=== PATIENT | female | born 1955 | race Caucasian/White ===

== ENCOUNTER 2019-03-15 08:24 | Inpatient (IN) | payer OTHER, SELFPAY ==
[2019-03-06 08:27] VITALS: BMI 25.8
[2019-03-15] VITALS (16 sets, daily range): BP systolic 126–181; BP diastolic 79–100; PULSE 62–70; RESP 12–20; TEMP 36.2–37.1; O2SAT 97–100; BMI 25.1
--- NOTE | 2019-03-15 06:00 | DI.RAD.S_ITS ---
PROCEDURE: XR KNEE LT 1TO2V INDICATIONS: prosthesis placement TECHNIQUE: 2 view(s) of the knee acquired. COMPARISON: None. FINDINGS: Bones: Patient is status post knee joint arthroplasty. Hardware components are in expected positions. Visualized bony structures are intact. Soft tissues: Overlying postoperative changes are noted. IMPRESSION: Normal alignment after left total knee arthroplasty, a surgical drain overlies the operative bed. Dictated by: Talha Colon M.D. on 03/15/2019 at 15:09 Approved by: Talha Colon M.D. on 03/15/2019 at 15:09
[2019-03-15] MEDS: CELECOXIB 200 MG CAPSULE PO (08:56)
[2019-03-15] MEDS: PREGABALIN 75 MG CAPSULE PO (08:56)
[2019-03-15] MEDS: ACETAMINOPHEN 325 MG TABLET 975 MG PO ×3 (08:56→20:45)
[2019-03-15] MEDS: LACTATED RINGERS 1,000 ML 42 ML IV ×2 (09:03→12:27)
[2019-03-15] MEDS: VANCOMYCIN 1,000 MG/200 ML FROZ.PIGGY 200 MG IV (09:30)
--- NOTE | 2019-03-15 10:51 | PM.PREOP ---
Pre-operative Note Interval Note History & Physical reviewed/Exam performed by Physician: Yes Changes to H&P: No
--- NOTE | 2019-03-15 10:53 | P.OP_ITS ---
Operative Date/Time/Diagnoses Date of procedure: 03/15/19 Time of procedure: 10:52 Post-op diagnosis: same Procedure & Clinicians Procedure: Left total knee arthroplasty Same procedure as scheduled: Yes Indications: The patient has had progressively worsening left knee pain with radiographic changes consistent with arthritis. Non-operative management has failed and the patient has requested total knee replacement. The risks, benefits and alternatives to surgery were discussed with the patient prior to proceeding. Risks discussed included, but were not limited to, failure to relieve pain, stiffness, infection, nerve damage, deep venous thrombosis, pulmonary embolism, stroke, coma, heart attack, permanent paralysis and , as well as the potential need for eventual revision of the prosthetic. Surgeon: Fany Faith Business Management Consultant: Sobeida Rodas Anesthesia Type: Spinal and Sedation Operative Notes Findings: Severe left knee arthritis, good stability Closure Type: primary Specimen(s): none sent Prosthetic devices, grafts, tissues, transplants, or devices: Faith [employer] Nephew Sathyaney BCS 2 SIZE 6 FEMUR, SIZE 4 TIBIA, +9 poly, 32 by 7-1/2 mm patella Applied: drain(s) Estimated Blood Loss (mL): 250 Blood products transfused: none Tourniquet time (min): 76 Procedure in detail: The patient was seen in the pre-operative area, where the patient identified the left knee as the operative site and this was marked with my initials. The patient received pre-operative antibiotics, and was taken to the operating room and placed on the operative table in the supine position. Aft er satisfactory anesthesia, a maritime pilot out was performed. The left leg was encircled with a tourniquet about the proximal thigh, and the leg was prepared from the toes to the tourniquet with ChloroPrep in the usual fashion and draped through sterile drapes. The leg was elevated and exsanguinated with Eschmark bandage and the tourniquet inflated to [250] mmHg pressure. The knee was approached through an approximately 18 cm incision centered over the patella and carried into the knee through a medial parapatellar arthrotomy. A portion of the medial and lateral meniscus was resected. Soft tissue was carefully mobilized around the patella the patella was measured with a caliper. Bone was resected from the patella and the patellar height was reconstituted with up an appropriate sized patellar component. A cover was then placed on the patella. A small amount of additional medial and lateral meniscus was resected. The visionare guide fit well to the distal femur. It looked like an appropriate distal femoral cut and the cut was made without difficulty. The rotation was assessed and the appropriate size femoral guide was placed on the distal femur and finishing cuts were made. There is no evidence of notching. The anterior, posterior and chamfer cuts were then made. The posterior osteophytes and soft tissues were then removed. The posterior capsule was injected with part of a mixture of 60 ml 0.25% Marcaine mixed with 20 ml Exparel for post operative pain control. The remainder of this mixture was injected into the capsule and subcutaneous tissues during cement curing. The tibia was prepared and the visionaire guide fit well to the distal tibia. The rotation was assessed. The patient was placed in extension residual medial and lateral meniscus as well as any residual bone was carefully resected. [No] additional tibia was resected. Hemostasis was achieved especially posteriorly. Additional local was injected into the posterior capsule. The extension gap was assessed and additional releases for gap balancing were performed as necessary. It was checked with the gap crimper assembler. The femoral component was trial was placed and the notch was finished. The screw in the femur was not encountered. Trial tibial and femoral components were then placed and the knee placed through a range of motion. Range of motion was [0-130], with good stability throughout the range. The trials were then removed, and the tibia was finished. There was a defect in the tibia in the region of the screw and washer. The washer was removed the screw was slightly impacted into the tibia. It did not interfere with the tibial punch. The bone was prepared with pulsatile lavage, and dried with a sponge. Cement was applied and the final prosthetics placed. Excess cement was removed during and after cement curing. A brief Betadine soak was performed. After confirming there was no extruded cement posteriorly, the final tibial insert was placed. The knee was copiously irrigated and the tourniquet deflated. Hemostasis was obtained with the [bovie]. A drain was placed and brought out superolaterally. The capsule was closed with interrupted Vicryl suture. The subcutaneous layer was closed with barbed sutures, and the skin with a running 3-0 V-Lock suture and Surgical glue. An Aquacel Ag dressing was applied and the patient was taken to recovery having tolerated the procedure well. Complications: none Condition: stable Disposition: Acute Care Plan for aftercare: The patient will be maintained on a standard total knee replacement protocol with weight bearing as tolerated. The patient will receive aspirin and sequential compression devices for DVT prophylaxis. The patient will be discharged home when safe for the home environment.
[2019-03-15] MEDS: CEFAZOLIN 2 GM/100 ML FROZ.PIGGY IV ×2 (11:03→19:16)
[2019-03-15] MEDS: TRANEXAMIC ACID 1,000 MG VIAL 1000 MG INJ ×2 (11:20→12:53)
--- NOTE | 2019-03-15 11:38 | SUR.OPER ---
Supine on padded OR bed. Pillow under head, arms secured on padded armboards <90 degree abduction. Safety belt across torso. Non-operative leg secured with tape over blanket over lower leg. Operative leg secured in DeMayo/Braydon positioner. Foam padded brace at thigh of operative leg.
[2019-03-15] MEDS: BUPIVACAINE 0.25% W/ EPI 30 ML VIAL 60 ML INJ (11:46)
[2019-03-15] MEDS: BUPIVACAINE LIPOSOME 266 MG/20 ML VIAL INJ (11:46)
[2019-03-15] MEDS: OXYCODONE IR 5 MG TABLET 10 MG PO (14:18)
[2019-03-15] MEDS: LACTATED RINGERS 1,000 ML 125 ML IV ×2 (15:04→23:58)
--- NOTE | 2019-03-15 16:08 | PC.NURSE ---
pt is a&o x3, pleasant and cooperative w/ staff. Patient's drain was unclamped during bedside shift report. Patient reports discomfort w/ loretta bandage around thigh. Upon inspection this nursed noted loretta bandage to be extremely tight around upper thigh, and hemovac was not draining properly likely due to tightness of bandage. This nurse unraveled some of the loretta bandage to loosen up around top of thigh, patient immediately reported that she could fell a tellez on blood flow down to her toes. Hemovac started to consistantly and properly flow once bandage was loosened up. PP are present and CMS intact, patient reports feeling to LE has improved since bandage tightness was relieved.
[2019-03-15] MEDS: OXYCODONE IR 5 MG TABLET PO ×2 (16:28→20:50)
--- NOTE | 2019-03-15 16:45 | PT.IIE ---
Current Diagnoses Unilateral post-traumatic osteoarthritis, left knee (03/15/19) Surgery Performed Operation Date: 03/15/19 10:45 Actual Procedures p Total Knee Arthroplasty(Left) - Fany Faith MD Surgical History (Last Updated 03/06/19 @ 09:22 by Verenice Barth, RN) History of arthroplasty of right knee (Acute ~2007) History of laparotomy (Acute) Hx of appendectomy (Acute) Hx of arthroscopy of right knee (Acute) Hx of hernia repair (Acute) Hx of shoulder surgery (Acute) Hx of tonsillectomy (Acute) Medical History (Last Updated 03/06/19 @ 09:20 by Verenice Barth, RN) Chronic tension-type headache, not intractable (Acute) Constipation (Acute) Cyst of right ovary (Acute) Hx of ectopic (Acute ~1979) Neck injury (Acute ~09/2018) Systolic murmur (Acute) Physical Therapy Inpatient Evaluation/Re-Eval M1 PT/OT-IP Prior Functional Status Start: 03/15/19 17:43 Freq: NEEDED Status: Active Protocol: Document 03/15/19 16:45 AB (Rec: 03/15/19 17:56 AB [id number]) Medical Review Prior Functional Status Medical History Reviewed Yes Communication able to make needs known Mobility and Gait pt stated that she is independent with all mobilities and ambulation without AD Social History Household Members spouse Living Arrangements House Number of Floors (Floors) One Floor Number of Stairs To Enter/Railing? 1 step to enter Home Environment High Toilet Walk in Shower Built-In Shower Seat Home Equipment Front Wheel Walker Hand Held Shower Grab Bars Near Toilet Grab Bars In Shower Employment Status [employer] Employed Additional Social History Comment pt works in [employer] M2 PT-IP Current Condition Start: 03/15/19 17:43 Freq: NEEDED Status: Active Protocol: Document 03/15/19 16:45 AB (Rec: 03/15/19 17:56 AB [id number]) Physical Therapy Current Condition Current Condition Evaluation Date 03/15/19 Treatment Diagnosis s/p L TKA; difficulty in walking Onset Date 03/15/19 Weight Bearing Status Weight Bearing Status Weight Bear as Tolerated M3 PT-IP Subjective Start: 03/15/19 17:43 Freq: NEEDED Status: Active Protocol: Document 03/15/19 16:45 AB (Rec: 03/15/19 17:56 AB [id number]) Subjective Physical Therapy Visit Type Type Initial Evaluation Visit Start Time 16:45 Visit Stop Time 17:43 Total Visit Minutes 58 Number of SCRAP PILER Visits 0 Physical Therapy Visit Comments Patient Comments pt requesting to use the toilet Therapy Pain Assessment Pain When Pain Assessed At Rest Pain Present Pain Present Pain Reported Location left knee Intensity 8 Scale Used Numeric (1 - 10) Pain Management Techniques Re-positioning Timing of Activity with Medications M4 PT-IP Mobility and Gait Start: 03/15/19 17:43 Freq: NEEDED Status: Active Protocol: Document 03/15/19 16:45 AB (Rec: 03/15/19 17:56 AB [id number]) PT-Bed Mobility Assessment Supine to Sit Supine to Sit Standby Assistance Scooting Scooting to Edge of Bed Standby Assistance PT-Transfer Assessment Sit to and From Stand Sit to and from Stand Minimal Assistance Equipment Transfer Assistive Device Gait Belt Front Wheeled Walker Orthotic/Prosthetic Devices or Brace: No Transfers Transfer Destination Toilet Transfer Technique pt ambulated using FWW Transfer Ability Level of Assist Contact Guard Assistance Comments Mobility Comments BP in supine: 168/105. informed pt but pt wants to get up and use the toilet. pt also with c/o increase L knee pain. nurse is aware of pt's BP. pt completed sit to stand min A and cues, ambulated to the toilet CGA using FWW ~ 15 ft. pt required min A for controlled descent to the toilet using grab bar. pt assisted with dressing. pt ambulated from the toilet to the chair using FWW CGA ~ 10 ft. pt c/o nausea. nurse aware. set pt up on chair and nurse took over. attempted to get BP reading but unsuccessful. Gait Assessment Gait Gait Assistance Required: Contact Guard Assist Distance (Feet) 15 Able to Maintain Weight Bearing Status Yes During Gait Assistive Devices Assistive Device Gait Belt Front Wheeled Walker Orthotic/Prosthetic Devices or Brace: No Gait Deviations General Gait Pattern Antalgic Decreased Stride Length Decreased Feet Clearance Factors Limiting Gait Function Factors Limiting Gait Function Decreased Activity Tolerance Decreased Strength Limited Range of Motion Pain Poor Balance PT-Balance Assessment Sitting Balance and Reactions Static Sitting Balance Ability Good Dynamic Sitting Balance Ability Good Standing Balance and Reactions Static Standing Balance Ability Fair Dynamic Standing Balance Ability Fair Device Used FWW M5 PT-IP Objective Assessments Start: 03/15/19 17:43 Freq: NEEDED Status: Active Protocol: Document 03/15/19 16:45 AB (Rec: 03/15/19 17:56 AB [id number]) Orientation Orientation/Cognition Level of Alertness Alert Orientation Name Age Birthday Month Date Year Day of Week Place Situation Language Function Ability No Deficits Noted Safety Awareness Understands Safety Issues Memory Description No Deficits Noted Gross Range of Motion Lower Extremity ROM Assessment Left Impaired Impairments L knee flexion: ~ 45 deg Strength Lower Extremity Strength Assessment Left Impaired Knee 3+/5 Coordination Assessment Gross Coordination Gross Coordination WNL Sensation Assessment Sensation Gross Sensation WNL Muscle Tone Muscle Tone WNL Yes M6 PT-IP Treatment Start: 03/15/19 17:43 Freq: NEEDED Status: Active Protocol: Document 03/15/19 16:45 AB (Rec: 03/15/19 17:56 AB [id number]) Physical Therapy Treatment Exercises Exercises Heel Slides Education Education Provided Precautions Weight Bearing Status Post-Op Packet Safety M7 PT-IP Assessment and Plan Start: 03/15/19 17:43 Freq: NEEDED Status: Active Protocol: Document 03/15/19 16:45 AB (Rec: 03/15/19 17:56 AB [id number]) PT Summary Assessment and Plan Potential Rehabilitation Potential Good Status of Condition at Evaluation Evolving Summary Impairments Pain ROM Strength Balance Coordination Sensation Tone Cognition Bed Mobility Transfers Gait Activity Tolerance Assessment Summary pt unable to tolerate much activity. Activity was limited due to pt's high BP and activity focus on toileting needs at that time and no further activities/ exercises conducted afterwards . d/c plan depending on progress but pt will likely improve during hospital stay. pt plans to go home with spouse to assist her. will continue to assess. Goals Bed Mobility Goal Independent Transfer Goal Independent Front Wheeled Walker Gait Goal Independent Front Wheel Walker Gait Distance 200 Other Goals up/down 1 step using FWW SBA Days to Meet Goals 5 Frequency of Treatment Frequency Of Treatment Twice a Day Treatment Plan Physical Therapy Treatment Plan Bed Mobility Training Transfer Training Gait Training Therapeutic Exercise Balance Retraining Post Op Education Discharge Planning Hot or Cold Pack Neuromuscular Re-ed Coordination Retraining Manual Therapy Other Recommendations and Next Treatment ambulation, stair climbing Focus Recommendations To Nursing Amount of Assist Needed 1 Person Assist Discharge Recommendations PT Discharge Recommendations Home with Assistance Outpatient PT
[2019-03-15] MEDS: ONDANSETRON 4 MG/2 ML INJ IV (17:42)
[2019-03-15] MEDS: HYDROMORPHONE 4 MG TABLET PO (17:43)
[2019-03-15] MEDS: ASPIRIN EC 81 MG TABLET PO (20:44)
[2019-03-15] MEDS: DOCUSATE 100 MG CAPSULE PO (20:45)
[2019-03-16] MEDS: OXYCODONE IR 5 MG TABLET PO ×2 (00:01→02:58)
[2019-03-16 02:30] VITALS: BP 123/70
--- NOTE | 2019-03-16 02:40 | PC.NURSE ---
Dr. Faith notified that pt. C/O dizziness when she first got OOB to used the BR. HV was emptied noted 200 cc of bloody drainage out. Dr. Faith ordered to clamped HV for 2 hrs. HV clamped @ 0235. Will cont. POC & monitor.
[2019-03-16] MEDS: CEFAZOLIN 2 GM/100 ML FROZ.PIGGY IV (02:58)
[2019-03-16 04:00] VITALS: BP 157/82; PULSE 71; RESP 19; TEMP 36.4; O2SAT 100
[2019-03-16] MEDS: HYDROMORPHONE 2 MG TABLET PO ×3 (05:32→14:49)
[2019-03-16 06:53] LABS: Hematocrit 35.1 % (36-46); Hemoglobin 11.6 g/dL (12.0-16.0)
--- NOTE | 2019-03-16 07:41 | PC.NURSE ---
0517 Pt. reported Oxycodone 5 mg. not effective pain relief & it made me nauseous. Dilaudid 2 mg PO admin. HV unclamped earlier. Will cont. POC & monitor.
[2019-03-16 08:48] VITALS: BP 115/74; PULSE 64; RESP 18; TEMP 36.7; O2SAT 96
[2019-03-16] MEDS: MELOXICAM 7.5 MG TABLET 15 MG PO (09:22)
[2019-03-16] MEDS: DOCUSATE 100 MG CAPSULE PO (09:22)
[2019-03-16] MEDS: ASPIRIN EC 81 MG TABLET PO (09:22)
[2019-03-16] MEDS: CALCIUM CARB/VIT D3 500/200 TABLET 1 EACH PO (09:22)
[2019-03-16] MEDS: ACETAMINOPHEN 325 MG TABLET 975 MG PO ×2 (09:23→14:49)
[2019-03-16] MEDS: ONDANSETRON 4 MG/2 ML INJ IV (09:24)
[2019-03-16] MEDS: KETOROLAC 15 MG/ML VIAL IV (09:24)
--- NOTE | 2019-03-16 10:20 | PM.PNPO.1 ---
Subjective Date Patient Seen: 03/16/19 Time Patient Seen: 10:20 Interval history: POD #1 status post left total knee arthroplasty with Dr. Faith. Patient had significant pain control issues last night. She was started on Dilaudid last night. She notes no chronic kidney disease. She is having significant nausea and requesting a medication for home. Exam Vital Signs (past 8 hours): - 03/16/19 02:30 03/16/19 04:00 03/16/19 08:48 Temperature 97.6 F 98.1 F Pulse Rate 71 64 Respiratory Rate 19 18 Blood Pressure 123/70 157/82 H 115/74 Pulse Oximetry 100 96 Fraction of Inspired Oxygen 21 Oxygen Delivery Method Room Air Oxygen Flow Rate 0 Narrative Exam Narrative: Patient lying in bed in no acute distress. She is alert and oriented x3. Dressing on the left knee is CDI. Calves are soft, compressible, nontender bilaterally. Sensation intact light touch throughout bilateral extremities. Pulses are symmetrical Objective Labs Result Diagrams: 03/16/19 06:25 Labs: Laboratory Results - last 24 hr 03/16/19 06:25 Hgb 11.6 L Hct 35.1 L Assessment & Plan Post-op (1) S/P total knee arthroplasty: Postoperative Procedures Operation Date: 03/15/19 10:45 Actual Procedures Side Surgeon p Total Knee Arthroplasty Left Fany Lamine Faith MD Patient will mobilize with physical therapy today. One time dose of IV Toradol. She will take Zofran at home as needed for nausea. Continue Dilaudid for pain control. Possible discharge home today if she is mobilizing safely and pain adequately controlled. Quality VTE Deep Vein Thrombosis/Pulmonary Embolism Present on Admission: No
--- NOTE | 2019-03-16 11:49 | PT.IPTN ---
Current Diagnoses Unilateral post-traumatic osteoarthritis, left knee (03/15/19) Presence of unspecified artificial knee joint (03/15/19) Surgery Performed Operation Date: 03/15/19 10:45 Actual Procedures p Total Knee Arthroplasty(Left) - Fany Faith MD Physical Therapy Treatment Note M2 PT-IP Current Condition Start: 03/15/19 17:43 Freq: NEEDED Status: Active Protocol: Document 03/15/19 16:45 AB (Rec: 03/15/19 17:56 AB [id number]) Physical Therapy Current Condition Current Condition Evaluation Date 03/15/19 Treatment Diagnosis s/p L TKA; difficulty in walking Onset Date 03/15/19 Weight Bearing Status Weight Bearing Status Weight Bear as Tolerated M3 PT-IP Subjective Start: 03/15/19 17:43 Freq: NEEDED Status: Active Protocol: Document 03/16/19 10:26 LJ (Rec: 03/16/19 11:48 LJ [id number]) Subjective Physical Therapy Visit Type Type Treatment Note Visit Start Time 10:26 Visit Stop Time 10:59 Total Visit Minutes 33 Physical Therapy Visit Comments Patient Comments Pt states Dr. Faith told her to get up and walk around. Pt willing to walk in hallway and practise stair training. Therapy Pain Assessment Pain When Pain Assessed During Mobility Pain Present Pain Present Pain Reported Location left knee Intensity 4 Pain Management Techniques Apply Cold Re-positioning Timing of Activity with Medications M4 PT-IP Mobility and Gait Start: 03/15/19 17:43 Freq: NEEDED Status: Active Protocol: Document 03/16/19 10:26 LJ (Rec: 03/16/19 11:48 LJ [id number]) PT-Bed Mobility Assessment Supine to Sit Supine to Sit Standby Assistance Scooting Scooting to Edge of Bed Standby Assistance PT-Transfer Assessment Sit to and From Stand Sit to and from Stand Standby Assistance Use of Upper Extremities Equipment Transfer Assistive Device Gait Belt Front Wheeled Walker Orthotic/Prosthetic Devices or Brace: No Transfers Transfer Destination Bed Transfer Technique Stand Step Pivot Transfer Ability Level of Assist Standby Assistance Use of Upper Extremities Comments Mobility Comments Pt free of nausea at this time . Able to perform all bed mobility other than placing pillow under her leg with SBA. Gait Assessment Gait Gait Assistance Required: Standby Assistance Distance (Feet) 200 Able to Maintain Weight Bearing Status Yes During Gait Assistive Devices Assistive Device Gait Belt Front Wheeled Walker Orthotic/Prosthetic Devices or Brace: No Gait Deviations General Gait Pattern Antalgic Decreased Stride Length Decreased Feet Clearance Factors Limiting Gait Function Factors Limiting Gait Function Decreased Activity Tolerance Decreased Strength Limited Range of Motion Pain Poor Balance Comments Gait Comments Pt ambulating SBA lifting FWW and moving it forward rather than rolling it. Uses step to gait pattern at this point. Heavy use of UEs when transfering weight to LLE. Pt is slow and steady w/o LOB. Uses proper body alignment with tendenancy to move FWW farther in forward than necessary. Stair Climbing Assessment Evaluation Level of Assist On Stairs Standby Assistance Contact Guard Assistance Devices Stair Climbing Assistive Devices Left Railing Right Railing Technique/Endurance Stair Climbing Direction Ascend and Descend Stair Climbing Technique Step to Step Number of Steps Climbed 3 Query Text: Stair Climbing Set # Repetitions (reps) 1 M5 PT-IP Objective Assessments Start: 03/15/19 17:43 Freq: NEEDED Status: Active Protocol: Document 03/15/19 16:45 AB (Rec: 03/15/19 17:56 AB [id number]) Orientation Orientation/Cognition Level of Alertness Alert Orientation Name Age Birthday Month Date Year Day of Week Place Situation Language Function Ability No Deficits Noted Safety Awareness Understands Safety Issues Memory Description No Deficits Noted Gross Range of Motion Lower Extremity ROM Assessment Left Impaired Impairments L knee flexion: ~ 45 deg Strength Lower Extremity Strength Assessment Left Impaired Knee 3+/5 Coordination Assessment Gross Coordination Gross Coordination WNL Sensation Assessment Sensation Gross Sensation WNL Muscle Tone Muscle Tone WNL Yes M6 PT-IP Treatment Start: 03/15/19 17:43 Freq: NEEDED Status: Active Protocol: Document 03/15/19 16:45 AB (Rec: 03/15/19 17:56 AB [id number]) Physical Therapy Treatment Exercises Exercises Heel Slides Education Education Provided Precautions Weight Bearing Status Post-Op Packet Safety M7 PT-IP Assessment and Plan Start: 03/15/19 17:43 Freq: NEEDED Status: Active Protocol: Document 03/16/19 10:26 LJ (Rec: 03/16/19 11:48 LJ [id number]) PT Summary Assessment and Plan Summary Assessment Summary Pt much improved since last session. Decreased pain and nausea with improvement in activity tolerance. Gait distance and technique has advanced also with less pain and greater ROM. Still uses slight circumduction of LLE for ambulation but was occasionally flexing knee more as her gait distance advanced . Treatment Plan Physical Therapy Treatment Plan Gait Training Therapeutic Exercise Balance Retraining Discharge Planning Hot or Cold Pack Coordination Retraining Other Recommendations and Next Treatment Safe to D/C home with assist Focus
--- NOTE | 2019-03-16 11:50 | PT.IPTN ---
Current Diagnoses Unilateral post-traumatic osteoarthritis, left knee (03/15/19) Presence of unspecified artificial knee joint (03/15/19) Surgery Performed Operation Date: 03/15/19 10:45 Actual Procedures p Total Knee Arthroplasty(Left) - Fany Faith MD Physical Therapy Treatment Note M2 PT-IP Current Condition Start: 03/15/19 17:43 Freq: NEEDED Status: Active Protocol: Document 03/15/19 16:45 AB (Rec: 03/15/19 17:56 AB [id number]) Physical Therapy Current Condition Current Condition Evaluation Date 03/15/19 Treatment Diagnosis s/p L TKA; difficulty in walking Onset Date 03/15/19 Weight Bearing Status Weight Bearing Status Weight Bear as Tolerated M3 PT-IP Subjective Start: 03/15/19 17:43 Freq: NEEDED Status: Active Protocol: Document 03/16/19 10:26 LJ (Rec: 03/16/19 11:48 LJ [id number]) Subjective Physical Therapy Visit Type Type Treatment Note Visit Start Time 10:26 Visit Stop Time 10:59 Total Visit Minutes 33 Physical Therapy Visit Comments Patient Comments Pt states Dr. Faith told her to get up and walk around. Pt willing to walk in hallway and practise stair training. Therapy Pain Assessment Pain When Pain Assessed During Mobility Pain Present Pain Present Pain Reported Location left knee Intensity 4 Pain Management Techniques Apply Cold Re-positioning Timing of Activity with Medications M4 PT-IP Mobility and Gait Start: 03/15/19 17:43 Freq: NEEDED Status: Active Protocol: Document 03/16/19 10:26 LJ (Rec: 03/16/19 11:48 LJ [id number]) PT-Bed Mobility Assessment Supine to Sit Supine to Sit Standby Assistance Scooting Scooting to Edge of Bed Standby Assistance PT-Transfer Assessment Sit to and From Stand Sit to and from Stand Standby Assistance Use of Upper Extremities Equipment Transfer Assistive Device Gait Belt Front Wheeled Walker Orthotic/Prosthetic Devices or Brace: No Transfers Transfer Destination Bed Transfer Technique Stand Step Pivot Transfer Ability Level of Assist Standby Assistance Use of Upper Extremities Comments Mobility Comments Pt free of nausea at this time . Able to perform all bed mobility other than placing pillow under her leg with SBA. Gait Assessment Gait Gait Assistance Required: Standby Assistance Distance (Feet) 200 Able to Maintain Weight Bearing Status Yes During Gait Assistive Devices Assistive Device Gait Belt Front Wheeled Walker Orthotic/Prosthetic Devices or Brace: No Gait Deviations General Gait Pattern Antalgic Decreased Stride Length Decreased Feet Clearance Factors Limiting Gait Function Factors Limiting Gait Function Decreased Activity Tolerance Decreased Strength Limited Range of Motion Pain Poor Balance Comments Gait Comments Pt ambulating SBA lifting FWW and moving it forward rather than rolling it. Uses step to gait pattern at this point. Heavy use of UEs when transfering weight to LLE. Pt is slow and steady w/o LOB. Uses proper body alignment with tendenancy to move FWW farther in forward than necessary. Stair Climbing Assessment Evaluation Level of Assist On Stairs Standby Assistance Contact Guard Assistance Devices Stair Climbing Assistive Devices Left Railing Right Railing Technique/Endurance Stair Climbing Direction Ascend and Descend Stair Climbing Technique Step to Step Number of Steps Climbed 3 Query Text: Stair Climbing Set # Repetitions (reps) 1 M5 PT-IP Objective Assessments Start: 03/15/19 17:43 Freq: NEEDED Status: Active Protocol: Document 03/15/19 16:45 AB (Rec: 03/15/19 17:56 AB [id number]) Orientation Orientation/Cognition Level of Alertness Alert Orientation Name Age Birthday Month Date Year Day of Week Place Situation Language Function Ability No Deficits Noted Safety Awareness Understands Safety Issues Memory Description No Deficits Noted Gross Range of Motion Lower Extremity ROM Assessment Left Impaired Impairments L knee flexion: ~ 45 deg Strength Lower Extremity Strength Assessment Left Impaired Knee 3+/5 Coordination Assessment Gross Coordination Gross Coordination WNL Sensation Assessment Sensation Gross Sensation WNL Muscle Tone Muscle Tone WNL Yes M6 PT-IP Treatment Start: 03/15/19 17:43 Freq: NEEDED Status: Active Protocol: Document 03/15/19 16:45 AB (Rec: 03/15/19 17:56 AB [id number]) Physical Therapy Treatment Exercises Exercises Heel Slides Education Education Provided Precautions Weight Bearing Status Post-Op Packet Safety M7 PT-IP Assessment and Plan Start: 03/15/19 17:43 Freq: NEEDED Status: Active Protocol: Document 03/16/19 10:26 LJ (Rec: 03/16/19 11:48 LJ [id number]) PT Summary Assessment and Plan Summary Assessment Summary Pt much improved since last session. Decreased pain and nausea with improvement in activity tolerance. Gait distance and technique has advanced also with less pain and greater ROM. Still uses slight circumduction of LLE for ambulation but was occasionally flexing knee more as her gait distance advanced . Treatment Plan Physical Therapy Treatment Plan Gait Training Therapeutic Exercise Balance Retraining Discharge Planning Hot or Cold Pack Coordination Retraining Other Recommendations and Next Treatment Safe to D/C home with assist Focus
[2019-03-16 13:00] VITALS: BP 100/62; PULSE 72; RESP 19; TEMP 37; O2SAT 97
--- NOTE | 2019-03-16 14:56 | CM.IDA ---
Initial DCP Assessment Note: Pt is a 63 yo female, resident of [place], now POD#1 from left knee surgery w/ Dr Faith. PCP: Not listed Payer: L+I Reviewed chart, pt discussed in multidisciplinary rounds this morning. Therapy has cleared pt for return home w/family to assist and pt has planned for home, DC order from Ortho PA has already been initiated this morning. No needs expected from DC planning team although will remain available in case this changes today. PEÑA Villela Discharge Planning/Care Management CM Discharge Assessment Start: 03/16/19 14:53 Freq: Status: Active Protocol: Document 03/16/19 14:53 DARRIUS (Rec: 03/16/19 14:56 DARRIUS [id number]) Discharge Planning Assessment Assigned Junior Business Analyst PEÑA Orellana DPOA/Assigned Designee Name Lloyd Anton, spouse Contact Information [phone] Advance Directives? Yes Advance Directives on File No History Provided By Patient Prior Living Arrangements House Household Members spouse Type of transporation used prior to Drives own vehicle admit Independent with ADL's Yes Is patient alert and oriented? Yes Barriers to Discharge No Discharge Plan Home Transportation Arrangement Family Referrals Initiated None needed
--- NOTE | 2019-03-16 14:59 | PC.NURSE ---
Pt dressed and ready for discharge home with Spouse. Went over d/c instructions with Pt and Spouse - discussed d/c meds, time of last dose, signs/symptoms of stroke and infection. Follow up. Encouraged fluid intake to prevent constipation or dehydration and reminded Pt not to drive while on narcotics. Pt denies further questions and was taken out via w/c by [facility] to POV with Spouse and all belongings
== END 2019-03-16 15:02 | disposition home or self-care (01) | DRG 302 ==
PROVIDERS: Admitting Provider Orthopaedic Surgery; Visit Provider Orthopaedic Surgery
PROC: 0SRD0JZ Replacement of Left Knee Joint with Synthetic Substitute, Open Approach (ICD-10-PCS; CPT 27447; principal; 2019-03-15 10:45)
DX: M17.32 Unilateral post-traumatic osteoarthritis, left knee (principal); V89.9XXD Person injured in unspecified vehicle accident, subsequent encounter; Z96.651 Presence of right artificial knee joint; M25.562 Pain in left knee; Y99.0 Civilian activity done for income or pay
CPT/HCPCS: 36415; 73560; 85014; 85018; 94762; 97116; 97162; 97530; C1776; C9290; J0690; J1885; J2250; J2405; J2704; J3010; J3370

== ENCOUNTER → 2020-08-04 12:51 | Outpatient (CLI) | payer OTHER, SELFPAY ==
[2019-03-15 14:49] VITALS: BMI 25.1
[2020-08-04 13:36] LABS: Add Manual Diff / Slide Review NO; Basophils Absolute Auto 0 /uL (0-100); Basophils Percent Auto 0.6 % (0-2); Eosinophils Absolute Auto 100 /uL (0-450); Eosinophils Percent Auto 0.8 % (2-4); Hematocrit 40.1 % (36-46); Hemoglobin 13.3 g/dL (12.0-16.0); Lymphocytes Absolute Auto 2000 /uL (1100-4500); Lymphocytes Percent Auto 29.6 % (25-40); Mean Corpuscular HGB Conc 33.1 % (30-36); Mean Corpuscular Hemoglobin 30.7 PG (26-34); Mean Corpuscular Volume 92.9 fL (80-100); Monocytes Absolute Auto 700 /uL (0-900); Monocytes Percent Auto 9.5 % (3-14); Neutrophils Absolute Auto 4100 /uL (1500-7000); Neutrophils Percent Auto 59.5 % (50-75); Platelet Count 249 X10^3/uL (150-400); Red Blood Cell Count 4.32 X10^6/uL (4.0-5.2); Red Cell Distribution Width 13.2 % (11.6-14.8); White Blood Cell Count 6.9 X10^3/uL (4.5-11.0)
[2020-08-04 13:57] LABS: BUN Creatinine Ratio 23.7 (6-22); Blood Urea Nitrogen 18 mg/dL (7-17); Calcium 9.7 mg/dL (8.4-10.2); Carbon Dioxide 31 mmol/L (22-32); Chloride 99 mmol/L (98-107); Estimated Glomerular Filt Rate > 60.0 mL/min (>60); Glucose 98 mg/dL (80-110); HEMOLYSIS < 15 (0-50); Potassium 4.7 mmol/L (3.4-5.1); Sodium 134 mmol/L (137-145)
== END ==
PROVIDERS: PCP Student in an Organized Health Care Education/Training Program; Referring Provider Orthopaedic Surgery; Visit Provider Orthopaedic Surgery
DX: Z01.818 Encounter for other preprocedural examination (principal); Z01.812 Encounter for preprocedural laboratory examination
CPT/HCPCS: 36415; 80048; 85025; 93005

== ENCOUNTER 2020-08-22 09:44 | Inpatient (IN) | payer OTHER, SELFPAY ==
[2019-03-15 14:49] VITALS: BMI 25.1
[2020-08-13 13:57] VITALS: BMI 27.0
[2020-08-22] VITALS (10 sets, daily range): BP systolic 101–158; BP diastolic 63–88; PULSE 63–78; RESP 15–18; TEMP 35.8–36.9; O2SAT 95–100; BMI 25.8
--- NOTE | 2020-08-22 06:00 | DI.RAD.S_ITS ---
PROCEDURE: XR KNEE LT 1TO2V INDICATIONS: LEFT POST OPERATIVE KNEE TECHNIQUE: 2 view(s) of the knee acquired. COMPARISON: [facility], CR, XR KNEE 3 VIEWS LEFT, 04/26/2020, 22:34. [facility], CR, XR KNEE LT 1TO2V, 03/15/2019, 13:42. FINDINGS: Bones: Patient is status post knee joint arthroplasty. Hardware components are in expected positions. Visualized bony structures are intact. Soft tissues: Overlying postoperative changes are noted. IMPRESSION: Status post left total knee arthroplasty. Dictated by: Sheila Gutierrez M.D. on 08/22/2020 at 15:56 Approved by: Sheila Gutierrez M.D. on 08/22/2020 at 15:57
[2020-08-22] MEDS: ACETAMINOPHEN 325 MG TABLET 975 MG PO (10:16)
[2020-08-22] MEDS: PREGABALIN 75 MG CAPSULE PO (10:16)
[2020-08-22] MEDS: LACTATED RINGERS 1,000 ML 42 ML IV (10:19)
[2020-08-22] MEDS: CELECOXIB 200 MG CAPSULE PO (10:19)
[2020-08-22] MEDS: VANCOMYCIN 1,000 MG/200 ML PIGGYBACK 200 MG IV (12:16)
--- NOTE | 2020-08-22 12:35 | P.OP_ITS ---
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 Revision of 1 component Same procedure as scheduled: Yes Indications: She has a history of an ACL tear with a previous ACL reconstruction. She then went on to have ongoing significant posttraumatic left knee osteoarthritis. She had a left total knee arthroplasty but has had problems with lateral compartment instability. She had very extensive physical therapy and conservative measures and is now brought to the operating room for revision in rebalancing of her knee.. Non-operative management has failed and the patient has requested revision total knee replacement. The risks, benefits and alternatives to surgery were discussed with the patient prior to proceeding. Risks discussed included, but were not limited to, failure to relieve pain, stiffness, infection, nerve damage, deep venous thrombosis, pulmonary embolism, stroke, coma, heart attack, permanent paralysis and , as well as the potential need for eventual rerevision of the prosthetic. Surgeon: Fany Fatih Water Softener Servicer: Larry Almaguer Anesthesia Type: General and Spinal Operative Notes Findings: Laxity in the lateral compartment preoperatively, rebalanced with polyethylene spacer with ortho sensor enhance technology, good balance achieved. Closure Type: primary Specimen(s): none sent Prosthetic devices, grafts, tissues, transplants, or devices: Faith and Nephew 12 mm size 4 BCS 2 polyethylene Estimated Blood Loss (mL): 100 Blood products transfused: none Tourniquet time (min): 72 Procedure in detail: The patient was seen in the pre-operative area, where the patient identified the left knee as the operative site and this was marked with my initials. The patient received pre-operative antibiotics, and was taken to the operating room and placed on the operative table in the supine position. After satisfactory anesthesia, a multimedia developer out was performed. The left leg was encircled with a tourniquet about the proximal thigh, and the leg was prepared from the toes to the tourniquet with ChloroPrep in the usual fashion and draped through sterile drapes. The leg was elevated and exsanguinated with Eschmark bandage and the tourniquet inflated to [250] mmHg pressure. The knee was approached through an approximately 18 cm incision centered over the patella and carried into the knee through a medial parapatellar arthrotomy. The patella was meticulously mobilized. Cultures were sent of fluid and intraoperative tissue. I meticulously mobilized the patella. Then carefully mobilized the soft tissues around the the knee and removed the 9 polyethylene. And ortho sensor was used to evaluate the tracking of the knee and the pressure on the polyethylene. A 9 ortho sensor was placed. The initial reading showed mid flexion instability with some mid flexion laxity both in the medial and lateral compartment significant lateral compartment laxity at 0, 45 and 90?. There was tension in the medial compartment but a pressure sensor of only about 20. A carefully mobilized around the knee it looked to see if there is any it residual medial osteophytes removed a minimal amount of medial bone and a small amount of residual lateral cement. There was inflammatory tissue along the lateral compartment and evidence of some synovium that was pinching in the lateral compartment. This was meticulously debrided. I then placed size 11 ortho sensor and then began ligament rebalancing. There was really no excessive laxity that could be tension on the lateral side. The medial collateral ligament was noted to be tight in comparison to the lateral compartment. A 18 gauge spinal needle was used to carefully pie crust the MCL using the Ortho Sensor you could see the tension in the medial collateral ligament drop from in the 35 range down to about 20 and you could see rebound seeing with tension in the lateral compartment. It was meticulously balanced such that at 10? there was a pressure differential within 15 lb and this was maintained at 45 and 90?. All of the pressure is were noted to be in the mid 20s on the medial side. I felt that I could probably go up to a 12 poly and the 12 poly was carefully inserted. I then did a repeat balancing and also did a full range of motion you could see that there was good positioning in the medial compartment with the dwell point being in the middle portion of the medial compartment with no significant translation. In the lateral compartment posterior gliding was demonstrated. There was good posterior gliding at 90?. The sensor was removed I looked at doing a more constrained option and I felt that as she had a competent lateral and medial collateral ligament that a less constrained option was optimal. Final polyethylene was selected and opened. Patient was placed thru a range of motion The posterior capsule was injected with part of a mixture of 60 ml 0.25% Marcaine mixed with 20 ml Exparel for post operative pain control. The remainder of this mixture was injected into the capsule and subcutaneous tissues during cement curing. Range of motion was [0-130], with good stability throughout the range. The knee was copiously irrigated and the tourniquet deflated. Hemostasis was obtained with the Aquamantys. The capsule was closed with interrupted nonabsorbable suture. The subcutaneous layer was closed with barbed sutures, and the skin with a running 3-0 V-Lock suture and skin harriett.. An Aquacel Ag dressing was applied and the patient was taken to recovery having tolerated the procedure well. Complications: none Post-operative Condition: stable Disposition: Acute Care Plan for aftercare: The patient will be maintained on a standard total knee replacement protocol with weight bearing as tolerated. The patient will receive aspirin and sequential compression devices for DVT prophylaxis. The patient will be discharged home when safe for the home environment.
--- NOTE | 2020-08-22 12:35 | PM.PREOP ---
Pre-operative Note COVID-19 COVID-19 status: Negative Interval Note History & Physical reviewed/Exam performed by Physician: Yes Changes to H&P: No
[2020-08-22] MEDS: CEFAZOLIN 2 GM/100 ML FROZ.PIGGY IV ×2 (13:23→21:11)
[2020-08-22] MEDS: TRANEXAMIC ACID 1,000 MG VIAL 1000 MG INJ ×2 (13:52→15:08)
--- NOTE | 2020-08-22 14:11 | SUR.OPER ---
Supine on padded OR bed. Pillow under head, arms secured on padded armboards <90 degree abduction. Safety belt across torso. Non-operative leg secured with tape over blanket over lower leg. Operative leg secured in Braydon positioner. Foam padded brace at thigh of operative leg.
[2020-08-22] MEDS: BUPIVACAINE 0.25% W/ EPI 30 ML VIAL 60 ML INJ (14:28)
[2020-08-22] MEDS: BUPIVACAINE LIPOSOME 266 MG/20 ML VIAL INJ (14:28)
[2020-08-22] MEDS: SODIUM CHLORIDE IRRIG SOLUTION 250 ML, POVIDONE-IODINE SPONGE STICKS 1 APPLIC IRR (14:36)
[2020-08-22] MEDS: LACTATED RINGERS 1,000 ML 100 ML IV (17:49)
[2020-08-22] MEDS: IBUPROFEN 400 MG TABLET PO ×2 (17:49→21:17)
[2020-08-22] MEDS: OXYCODONE IR 5 MG TABLET PO ×2 (17:49→22:17)
[2020-08-22] MEDS: ACETAMINOPHEN 325 MG TABLET 650 MG PO (21:17)
[2020-08-22] MEDS: ASPIRIN EC 81 MG TABLET PO (21:18)
[2020-08-22] MEDS: DOCUSATE 100 MG CAPSULE PO (22:18)
--- NOTE | 2020-08-22 23:23 | PC.NURSE ---
Admit/Evening Shift Note- Patient arrived to room via bed from PACU at 1600. Patient alert and oriented. Admit questions done, meds reviewed, physical assessment done, and skin check completed. Patient oriented to bed and bed controls, room ,bathroom, lights, phone, menu, and call cordon/tv remote. Safety measures in place. Patient agrees to call for assistance. Bed alarm activated. call cordon and phone within reach. will continue to monitor.
[2020-08-23 00:11] VITALS: BP 131/82; PULSE 70; RESP 18; TEMP 37.4; O2SAT 98
[2020-08-23] MEDS: IBUPROFEN 400 MG TABLET PO ×4 (00:36→13:38)
[2020-08-23] MEDS: OXYCODONE IR 5 MG TABLET PO ×4 (02:54→13:41)
[2020-08-23 03:59] VITALS: BP 118/72; PULSE 69; RESP 16; TEMP 36.8; O2SAT 98
[2020-08-23] MEDS: LACTATED RINGERS 1,000 ML 100 ML IV (04:03)
[2020-08-23 04:35] LABS: Hematocrit 36.5 % (36-46); Hemoglobin 12.1 g/dL (12.0-16.0)
[2020-08-23] MEDS: CEFAZOLIN 2 GM/100 ML FROZ.PIGGY IV (05:09)
[2020-08-23 08:02] VITALS: BP 140/75; PULSE 65; RESP 18; TEMP 36.3; O2SAT 97
[2020-08-23] MEDS: polyethylene glycoL 3350 17 GM POWD.PACK PO (09:33)
[2020-08-23] MEDS: ACETAMINOPHEN 325 MG TABLET 650 MG PO ×2 (09:34→13:41)
[2020-08-23] MEDS: MAGNESIUM OXIDE 400 MG TABLET PO (09:34)
[2020-08-23] MEDS: ASPIRIN EC 81 MG TABLET PO (09:34)
[2020-08-23] MEDS: CALCIUM CARBONATE 500 MG TAB PO (09:34)
[2020-08-23] MEDS: DOCUSATE 100 MG CAPSULE PO (09:34)
--- NOTE | 2020-08-23 10:18 | P.PN_ITS ---
Subjective Subjective Date Patient Seen: 08/23/20 Time Patient Seen: 10:18 Interval history: Patient is POD#1 s/p Left total knee revision, ligament rebalancing and polyethylene exchange with Dr. Faith. Pain has been controlled with Oxycodone. She has been OOB to the toilet. She has been tolerating a diet and voiding appropriately. No complaints. Exam Vital Signs (past 8 hours): - 08/23/20 03:59 08/23/20 08:02 Temperature 98.3 F 97.4 F L Pulse Rate 69 65 Respiratory Rate 16 18 Blood Pressure 118/72 140/75 Pulse Oximetry 98 97 Oxygen Delivery Method Room Air Oxygen Flow Rate 0 Narrative Exam Narrative: 65 year old female resting in bed. Alert and oriented in no ac sac and [place] distress. Dressing in place over the left knee is CDI. Patient able to perform a straight leg raise. Calves are soft, nontender. Objective Labs Result Diagrams: 08/23/20 04:05 Labs: Laboratory Results - last 24 hr 08/23/20 04:05 Hgb 12.1 Hct 36.5 Assessment & Plan Assessment & Plan narrative: Patient doing well postoperatively. Continue ASA 81mg BID and SCDs for DVT prophylaxis. Oxycodone and Vistaril provided for postop pain relief. Discharge to home later today after PT with as zoo caretaker. Quality VTE Deep Vein Thrombosis/Pulmonary Embolism Present on Admission: No
[2020-08-23 10:27] VITALS: O2SAT 99
--- NOTE | 2020-08-23 11:40 | CM.DANOTE ---
Patient is a 65 year old female who was admitted on 08/22/20 for LTKA Revision. Pt has L&I for insurance and her PCP is Dr. Edgardo Mcbride. EMR was reviewed. Per Ortho PA, pt tolerated revision well and stable for d/c today pending PT. SW spoke to PT who will work with patient soon. 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 Pt denies any hx of SNF but states after first knee surgery she had HH but feels that outpt PT helps more. Pt already established with outpt PT and has first appointment scheduled with PT that she knows well and has worked with the past couple years. Pt preference is home today and states the revision feels less painful than total knee replacement and she does not anticipate any needs. Spouse will be bedside around 1330 and RN sent scripts to [facility] for spouse to cone picker on his way in as per pt my has no patience. Therefore when spouse arrives he can just transport pt home without waiting too long. Pt states spouse works on their farm and will be available for assist if needed and they have two grown adult children who live in [place] and [place] and can assist if needed. Plan: SW to follow for plan of pt d/c home via spouse POV this afternoon pending PT eval and recommendations soon. PEÑA Doe Discharge Planning/Care Management CM Discharge Assessment Start: 08/23/20 11:34 Freq: Status: Active Protocol: Document 08/23/20 11:34 BF (Rec: 08/23/20 11:40 BF [id number]) Discharge Planning Assessment Assigned Rn Teacher PEÑA Walker DPOA/Assigned Designee Name spouse Lloyd Contact Information [phone] Advance Directives? Yes Advance Directives on File Yes History Provided By Patient,Medical Record Has Patient been admitted in last 30 No days? Prior Living Arrangements House Household Members spouse Type of transporation used prior to Drives own vehicle admit Independent with ADL's Yes Is patient alert and oriented? Yes Caregiver for Another No DME Already Rented / Owned Bath Bench,Elevated Toilet Seat,FWW / Walker Patient/Family Preference OP PT Therapy Barriers to Discharge No Discharge Plan Home Community Services Physical Therapy Transportation Arrangement Spouse will be bedside around 1330 Referrals Initiated None needed Whiteboard Updated in Patient Room with Yes name and ext. # of Rn Teacher Review Status In Process Please Provide Date Initial DC 08/23/20 Assessment Was Performed Next Review Type Continued Stay Review Pre-Anesthesia Assessment Start: 08/13/20 13:57 Freq: Status: Complete Protocol: Document 08/13/20 13:57 CAB (Rec: 08/13/20 14:22 CAB [id number]) Pre-Anesthesia Assessment Preferred Name Sonia Patient Information Reviewed Via Phone Assessment Assessment Completed With Patient Diagnostic Results BMP/CMP,CBC Comment Labs/EKG @ [facility] COVID screen @ [facility] 08/19/20 Primary Care Provider Edgardo Mcbride Seen Specialist in Last 12 Months Yes Specialist Seen Orthopedist Primary Language Uzbek Preferred Language Uzbek Alpine Patroller Required No Height 172.72 cm Weight 80.739 kg Body Mass Index (BMI) 27.0 Hearing Ability Normal Visual Assist Glasses Dentition Type Teeth, Natural Present Barriers to Learning None,Visual 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 Hx Anesthesia Reactions No Hx Family Anesthesia Reaction No Hx Malignant Hyperthermia No Hx Blood Transfusions Yes: r/t ectopic 1979 Hx Blood Transfusion Reaction No Anesthesia Review Requested No Performance Improvement Director No alcohol intake current alcohol intake frequency 3 or more drinks per day Smoking Status Former smoker Tobacco type cigarettes how long ago did patient quit smoking Quit 8-9 years ago Substance Use Type does not use,other Pain Present Pain Reported Musculoskeletal Symptoms Abnormal Gait,Back Pain, Difficulty Walking,Joint Pain, Neck Pain History of Falling (Recent or History of No ) Patient is completely paralyzed or No completely immobile Mental Status Oriented to own ability Does patient have WALLER/SOB No Hx Sleep Apnea No CPAP/BIPAP use not prescribed Currently Taking a Beta Ceci No Can You Climb a Flight of Stairs Without Yes SOB Hx Chest Pain No Hx SOB No Hx Syncope or Dizziness No Anti-Coagulant Therapy No Has a Shoeblack No Cardiac Testing No Hx Pacemaker/ICD No Pacemaker Rep Required? No Cardiac Clearance Received Not Applicable Diet Type At Home Regular dysphagia No Gastrointestinal Symptoms Constipation Urinary Catheter Present No Hx Urinary Self Catheterization No Diabetes No Patient No Lactating No Hx Drug Resistant Organism No Presence of External or Internal Medical Yes: Denilson knee prosthesis, Devices night coordinator Have you had any close contact with No someone diagnosed with COVID-19? Marital Status Lives With spouse Prior Living Arrangements House Number of Floors (Floors) One Floor Support System Spouse Does the Patient Have Assistance After Yes Surgery Patient Discharge Plan Description Return Home Comment Pt advised 1-2 night length of stay per surgeon Feels Safe in Current Environment Yes Been Physically Hurt or Threatened By a No Person in Current Environment Do you have thoughts of harming yourself None or others? Are you currently considering suicide? No Do you have a plan to hurt yourself or No Plan others? Do You Have Any Spiritual Beliefs That No May Affect Your HC Choices? Do You Have Any Cultural Practices That No May Affect Your HC Choices? Comment Anabaptist Who Can We Speak to About Patient's Care Family, friends Identifying Code for Release of Patient Declines to issue Information Health Care Proxy/Next of Kin Davon Desai () Health Care Proxy Emergency Contact Name Davon Desai () Catherine (daughter) Emergency Contact Phone Number Lloyd: [phone] Catherine: [phone] Advance Directives? Yes Advance Directives on File Yes Power of Block Press Operator No PAC Instructions Do not shave/clip surgical site,Durable medical equipment ,Medications to take/avoid, Nasal antibiotic,No ETOH/ petroleum product on skin DOS, NPO,Pre-surgical wash,Sturdy shoes/comfortable clothes,Do not bring valuables and remove jewelry
--- NOTE | 2020-08-23 13:03 | PT.IIE ---
Current Diagnoses Pain due to internal orthopedic prosthetic devices, implants and grafts, initial encounter (08/22/20) Surgery Performed Operation Date: 08/22/20 12:00 Actual Procedures p Total Knee Arthroplasty Revision - Entire Tibial Component(Left) - Fany Faith MD Surgical History (Last Updated 08/22/20 @ 10:13 by Mariposa Rivas RN) History of arthroplasty of left knee (Acute 03/15/19) History of arthroplasty of right knee (Acute ~2007) History of laparotomy (Acute) History of total bilateral knee replacement (Acute) Hx of appendectomy (Acute) Hx of arthroscopy of right knee (Acute) Hx of hernia repair (Acute) Hx of shoulder surgery (Acute) Hx of tonsillectomy (Acute) Medical History (Last Updated 03/06/19 @ 09:20 by Verenice Barth RN) Chronic tension-type headache, not intractable (Acute) Constipation (Acute) Cyst of right ovary (Acute) Hx of ectopic (Acute ~1979) Neck injury (Acute ~09/2018) Systolic murmur (Acute) Physical Therapy Inpatient Evaluation/Re-Eval M1 PT/OT-IP Prior Functional Status Start: 08/23/20 12:34 Freq: Status: Active Protocol: Document 08/23/20 11:32 MB (Rec: 08/23/20 13:03 MB [id number]) Medical Review Prior Functional Status Medical History Reviewed Yes Communication WNLs Mobility and Gait Gait trained with rolling walker, cane, and without AD Activities of Daily Living and IADL's Mod I, has all DME needs at home Social History Household Members spouse Living Arrangements House Number of Floors (Floors) One Floor Number of Stairs To Enter/Railing? 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, has history of L TKR, R TKR, recent rotator cuff injury, feels ready to d/c home and then go to OPPT M2 PT-IP Current Condition Start: 08/23/20 12:34 Freq: Status: Active Protocol: Document 08/23/20 11:32 MB (Rec: 08/23/20 13:03 MB [id number]) Physical Therapy Current Condition Current Condition Evaluation Date 08/23/20 Treatment Diagnosis L TKR Onset Date 08/22/2020 Weight Bearing Status Weight Bearing Status Weight Bear as Tolerated M3 PT-IP Subjective Start: 08/23/20 12:34 Freq: Status: Active Protocol: Document 08/23/20 11:32 MB (Rec: 08/23/20 13:03 MB [id number]) Subjective Physical Therapy Visit Type Type Initial Evaluation Visit Start Time 11:32 Visit Stop Time 11:59 Total Visit Minutes 27 Number of NURSE PRACTITIONER PHYSICIAN ASSISTANT Visits 0 Physical Therapy Visit Comments Patient Comments I've been through this before ! I'm ready to go home. Patient Goals To go home today, to prepare for OPPT, to get back to working with her [employer] [facility] Pain Assessment Pain When Pain Assessed At Rest Pain Present Pain Present Pain Reported Location left knee Intensity 4 Scale Used Numeric (0 - 10) Pain Management Techniques Apply Cold M4 PT-IP Mobility and Gait Start: 08/23/20 12:34 Freq: Status: Active Protocol: Document 08/23/20 11:32 MB (Rec: 08/23/20 13:03 MB [id number]) PT-Bed Mobility Assessment Rolling Type of Rolling Log Rolling,Roll to Right Supine to Sit Supine to Sit Independent,Bedrails Scooting Scooting to Edge of Bed Independent PT-Transfer Assessment Sit to and From Stand Sit to and from Stand Standby Assistance Equipment Transfer Assistive Device Gait Belt,Front Wheeled Walker Orthotic/Prosthetic Devices or Brace: No Transfer Ability Level of Assist Standby Assistance Comments Mobility Comments First time OOB with PT: pt with ice on left knee, left leg elevated, PT assists with taking off the ice and donning socks and then pt performs all other tasks. PT supervises pt getting into BR and she can perform toileting with I. Gait Assessment Gait Gait Assistance Required: Standby Assistance Distance (Feet) 125 Able to Maintain Weight Bearing Status Yes During Gait Assistive Devices Assistive Device Gait Belt,Front Wheeled Walker Orthotic/Prosthetic Devices or Brace: No Gait Deviations General Gait Pattern Antalgic,Decreased Stride Length,Decreased Feet Clearance,Flexed Trunk Factors Limiting Gait Function Factors Limiting Gait Function Limited Range of Motion,Pain Comments Gait Comments Pt gait trains 125'2 from her room to the steps and back. She presents with decreased heel strike and foot clearance on the left, slow tahmina. She tries to improve gait quality with cues from PT and she does improve some. SBA because first time up in hospital with PT. She will have asst at home. Stair Climbing Assessment Evaluation Level of Assist On Stairs Contact Guard Assistance Devices Stair Climbing Assistive Devices Front Wheel Walker Technique/Endurance Stair Climbing Direction Ascend and Descend Stair Climbing Technique Step to Step Number of Steps Climbed 3 Query Text: Stair Climbing Set # Repetitions (reps) 1 Comments Stair Climbing Comments Education for stair training ascend with backwards strategy and PT assisting with walker in front, step up with right foot and left foot follows, descend forward with left foot first and right foot follows, PT assisting with walker. PT ed pt to perform this strategy with at home. Pt does then perform 1 step ascend and descend x2 with PT cues for proper stepping strategy and use of rolling walker PT-Balance Assessment Sitting Balance and Reactions Static Sitting Balance Ability Good Dynamic Sitting Balance Ability Good Standing Balance and Reactions Static Standing Balance Ability Good Dynamic Standing Balance Ability Good Device Used RW Comments Other Balance Tests/Deviations/Treatment UE support for dynamic sitting : M5 PT-IP Objective Assessments Start: 08/23/20 12:34 Freq: Status: Active Protocol: Document 08/23/20 11:32 MB (Rec: 08/23/20 13:03 [id number]) Orientation Orientation/Cognition Level of Alertness Alert Language Function Ability No Deficits Noted Safety Awareness Understands Safety Issues Memory Description No Deficits Noted Gross Range of Motion Upper Extremity ROM Assessment Within Functional Limits Lower Extremity ROM Assessment Left Impaired Impairments Functional foot drop with gait , AROM left knee 10-40 in hook lying Strength Upper Extremity Strength Assessment Within Functional Limits Lower Extremity Strength Assessment Left Impaired Comments Strength Comments Did not MMT B shoulders d/t pt reports of rotator injury, right LE WNLs and L LE not MMT d/t limited range after surgery last date Sensation Assessment Sensation Gross Sensation WNL Comments Sensation Comments Dressing over left knee, so could not test M6 PT-IP Treatment Start: 08/23/20 12:34 Freq: Status: Active Protocol: Document 08/23/20 11:32 MB (Rec: 08/23/20 13:03 [id number]) Physical Therapy Treatment Exercises Exercises Ankle Pumps,Quad Sets,Heel Slides Education Education Provided Safety Other Treatments Other Treatment Performed Stair training, gait training M7 PT-IP Assessment and Plan Start: 08/23/20 12:34 Freq: Status: Active Protocol: Document 08/23/20 11:32 MB (Rec: 08/23/20 13:03 MB [id number]) PT Summary Assessment and Plan Potential Rehabilitation Potential Excellent Status of Condition at Evaluation Stable Summary Impairments Pain,ROM,Strength,Balance,Gait ,Activity Tolerance Progress Towards Goals Safe For Discharge Assessment Summary Pt is a 65 y/o female who underwent L TKR last date. She has had previous TKRs and PT. She presents with decreased ROM POD#1 and requires superv to CGA for activities as this is her first time up with PT in the hospital. She presents with functional foot drop with left foot with gait with pt lightly dragging the lateral side of her left foot despite cues. Education about heel strike and gait pattern. Stair training today. She is planning to d/c in the next half hour. Pt to have assist at home, has needed DME and is on schedule for OPPT as cleared by surgeon. Will d/ c acute PT. Left EOB with lunch with nsg aware and call cordon in reach. Ed pt to only get up in hospital with staff assist. Frequency of Treatment Frequency Of Treatment Discharge Recommendations To Nursing Amount of Assist Needed Standby Assistance Discharge Recommendations PT Discharge Recommendations Home with Assistance, Outpatient PT Transportation Needs at Discharge Private Vehicle
--- NOTE | 2020-08-23 13:47 | PC.NURSE ---
Day shift: Pt's MD scripts given to spouse. He will take them to [facility] now.
--- NOTE | 2020-08-23 14:21 | PC.NURSE ---
Day shift: Pt taken to car driven by her spouse in WC by this specification writer at approx 1415. Paperwork signed and all questions answered. Medicated for pain prior to d/c for ride home to [place]. JEREL wrapped left leg is CDI. Pt reports passing gas and urine output has been good. No nausea today as well. Pt has all personal belongings.
== END 2020-08-23 14:22 | disposition home or self-care (01) | DRG 302 ==
PROVIDERS: Admitting Provider Orthopaedic Surgery; PCP Student in an Organized Health Care Education/Training Program; Referring Provider Family Medicine; Visit Provider Orthopaedic Surgery
PROC: 0SPD09Z Removal of Liner from Left Knee Joint, Open Approach (ICD-10-PCS; principal; 2020-08-22 12:00)
DX: T84.023A Instability of internal left knee prosthesis, initial encounter (principal); T84.84XA Pain due to internal orthopedic prosthetic devices, implants and grafts, initial encounter
CPT/HCPCS: 36415; 73560; 85014; 85018; 87070; 87075; 87176; 87205; 97116; 97161; C1776; C9290; J0690; J2250; J3010